=== PATIENT | male | born 1980 | race Caucasian/White ===

== ENCOUNTER 2016-12-01 21:24 | Emergency (ER) | payer BC ==
[2016-12-01 22:11] LABS: BASOPHILS 0.3 %; BASOPHILS ABSOLUTE 0.02 10/3/uL (0.0-0.16); EOSINOPHILS 3.4 %; EOSINOPHILS ABSOLUTE 0.25 10/3/uL (0.0-0.53); ER CBC TAT 0 Hrs 13 Mins; HEMATOCRIT 40.2 % (40.0-51.0); HEMOGLOBIN 14.1 g/dL (13.6-17.8); IMMATURE GRANULOCYTES 0.3 %; IMMATURE GRANULOCYTES ABSOLUTE 0.02 10/3/uL (0.0-0.11); LYMPHOCYTES 20.4 %; LYMPHOCYTES ABSOLUTE 1.52 10/3/uL (0.67-4.30); MANUAL DIFF NO %; MEAN CORPUS HGB CONC 35.1 g/dL (32.0-36.0); MEAN CORPUSCULAR HEMOGLOB 31.5 pg (26.0-34.0); MEAN CORPUSCULAR VOLUME 89.9 fL (80-100); MEAN PLATELET VOLUME 9.8 fL (9.2-13.0); MONOCYTES 6.7 %; NEUTROPHILS 68.9 %; NEUTROPHILS ABSOLUTE 5.14 10/3/uL (2.02-8.40); PLATELET COUNT 323 10/3/uL (150-400); RBC DISTRIBUTION WIDTH 12.7 % (12.0-16.0); RED CELL COUNT 4.47 10/6/uL (4.7-6.1); WHITE BLOOD CELLS 7.5 10/3/uL (4.5-10.5)
[2016-12-01 22:26] LABS: A/G RATIO 1.1 (0.7-1.9); ALBUMIN 4.2 G/DL (3.5-5.0); ALKALINE PHOSPHATASE 101 U/L (45-117); BUN (BLOOD UREA NITROGEN) 11 MG/DL (6-23); CALCIUM, SERUM 9.4 MG/DL (8.5-10.4); CHLORIDE, SERUM 103 MMOL/L (96-112); CO2 (CARBON DIOXIDE) 27 MMOL/L (24-34); CREATININE 1.02 MG/DL (0.70-1.30); GFR AFRICAN AMERICAN 111 ML/MIN (>=60); GFR NON AFRICAN AMERICAN 95 ML/MIN (>=60); GLOBULIN 3.9 G/DL (2.5-4.1); GLUCOSE, SERUM 106 MG/DL (60-99); POTASSIUM, SERUM 4.1 MMOL/L (3.5-5.3); SGOT(AST) 16 U/L (5-40); SGPT(ALT) 54 U/L (5-65); SODIUM, SERUM 138 MMOL/L (135-148); TOTAL BILIRUBIN 0.6 MG/DL (0-1.2); TOTAL PROTEIN 8.1 G/DL (6.0-8.5)
[2016-12-02 02:00] LABS: ASCORBIC ACID (UR NOT ORDER) NEG (NEG); BILIRUBIN, URINE NEGATIVE (NEG); ER URINALYSIS TAT 0 Hrs 00 Mins; KETONE, URINE NEGATIVE (NEG); LEUKOCYTE ESTERASE(NOT OR NEG (NEG); NITRITE (URINE) NEG (NEG); WBC (NOT ORDERED) (RFLEX) < 1 (0-5)
[2017-05-02] MEDS ORDERED: PCET PO (18:37)
[2017-05-02] MEDS ORDERED: NORV10 PO (18:37)
[2017-05-02] MEDS ORDERED: LOP25 PO (18:37)
[2017-05-02] MEDS ORDERED: ATV1 PO (18:37)
[2017-05-02] MEDS ORDERED: *UNABLE2 (18:38)
[2017-05-02] MEDS ORDERED: PROAIR HFA INH (18:38)
[2017-05-02] MEDS ORDERED: LEXAPRO10 PO (18:38)
[2017-05-02] MEDS ORDERED: REMERON30 MG PO (18:38)
[2017-05-02] MEDS ORDERED: PRILOSEC40 MG PO (18:39)
[2017-05-04] MEDS ORDERED: PRIN10 PO (13:29)
[2017-05-14] MEDS ORDERED: MVI PO (18:31)
[2017-05-14] MEDS ORDERED: XARELTO20 MG PO (18:33)
[2017-05-14] MEDS ORDERED: LOP25 PO (18:34)
[2017-05-14] MEDS ORDERED: PROTONIX PO (18:39)
[2017-05-14] MEDS ORDERED: ZOFRAN4 PO (18:40)
[2017-05-14] MEDS ORDERED: FOLIC PO (18:40)
[2017-05-14] MEDS ORDERED: NOR25 PO (18:41)
[2017-05-14] MEDS ORDERED: REG5 PO (18:41)
== END 2016-12-02 02:14 | disposition home or self-care (01) ==
LOC: ER 21:24
PROVIDERS: Emergency Medicine
DX: R11.2 Nausea with vomiting, unspecified (principal); R10.9 Unspecified abdominal pain; F17.200 Nicotine dependence, unspecified, uncomplicated; Z88.0 Allergy status to penicillin; Z88.5 Allergy status to narcotic agent
CPT/HCPCS: 74176; 80053; 81001; 83690; 85025; 96374; 96375; 99284; C9113; J1170; J2765